=== PATIENT | male | born 1980 | race Caucasian/White ===

== ENCOUNTER 2019-10-19 18:51 | Emergency (ER) | payer OTHER ==
[~2019-10-19] VITALS: Ht 170.2 cm; Wt 102.3 kg
[2019-10-19 19:00] VITALS: Ht 170.2 cm; Wt 102.3 kg
[2019-10-19] MEDS ORDERED: GLUCOPHAGE500 MG PO (19:01)
[2019-10-19] MEDS ORDERED: CLARITIN 10 MG10 MG PO (19:02)
[2019-10-19] MEDS ORDERED: FENOGLIDE40 MG PO (19:02)
[2019-10-19] MEDS ORDERED: BAYER CHEWABLE81 MG PO (19:02)
[2019-10-19] MEDS ORDERED: TRICOR145 MG PO (19:23)
[2019-10-19] MEDS ORDERED: GLUCOPHAGE1000 MG PO (19:23)
[2019-10-19] MEDS ORDERED: LISINOPRIL20 MG PO (19:24)
[2019-10-19] MEDS ORDERED: SINGULAIR10 MG (19:24)
[2019-10-19] MEDS ORDERED: ELAVIL10 MG PO (19:24)
[2019-10-19] MEDS ORDERED: VOLTAREN75 MG PO (19:49)
[2019-10-19 20:20] VITALS: BP 128/87
== END 2019-10-19 20:20 | disposition home or self-care (01) ==
LOC: D.ER 18:51
DX: M25.522 Pain in left elbow (principal); S53.402A Unspecified sprain of left elbow, initial encounter; E11.9 Type 2 diabetes mellitus without complications; Z79.84 Long term (current) use of oral hypoglycemic drugs; X58.XXXA Exposure to other specified factors, initial encounter; Y93.9 Activity, unspecified; Y92.9 Unspecified place or not applicable